=== PATIENT | male | born 1960 | race Caucasian/White ===

== ENCOUNTER 2018-06-02 18:20 | Emergency (ER) | payer OTHER ==
[2018-06-02] MEDS ORDERED: SODIUM CHLORIDE 0.9% 1,000 ML IV STA (18:26)
[2018-06-02] MEDS ORDERED: SODIUM CHLORIDE 0.9% 500 ML 500 ML IV STA (18:26)
[2018-06-02] MEDS ORDERED: MORPHINE SULFATE 2 MG/ML SYRINGE IVP STA (18:27)
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
[2018-06-02 18:48] LABS: Basophils % (A) 0 %; Eosinophils # (A) 0.3 k/uL (0-0.7); Eosinophils % (A) 4 %; HCT 46.4 % (39.0-53.0); HGB 15.3 gm/dL (13.0-17.5); Lymphocytes # (A) 1.8 k/uL (1.0-4.8); Lymphocytes % (A) 27 %; MCH 32.6 pg (25.0-35.0); MCHC 32.9 g/dL (31.0-37.0); MCV 99.2 fL (80.0-100.0); Mean Platelet Volume 6.4; Monocytes # (A) 0.3 k/uL (0-1.0); Monocytes % (A) 4 %; Neutrophils # (A) 3.9 k/uL (1.3-7.7); Neutrophils % (A) 61 %; Platelet Count 148 k/uL (150-450); RBC 4.68 m/uL (4.30-5.90); RDW 12.8 % (11.5-15.5); WBC 6.4 k/uL (3.8-10.6)
[2018-06-02 18:55] LABS: Glucose 169 mg/dL (74-99); Total Protein 7.4 g/dL (6.3-8.2)
[2018-06-02 18:56] LABS: ALT 122 U/L (21-72); AST 148 U/L (17-59); Albumin 3.9 g/dL (3.5-5.0); Alcohol <10 mg/dL; Alkaline Phosphatase 116 U/L (38-126); Amylase 33 U/L (30-110); Anion Gap 8 mmol/L; Blood Urea Nitrogen 19 mg/dL (9-20); Calcium 9.1 mg/dL (8.4-10.2); Carbon Dioxide 28 mmol/L (22-30); Chloride 103 mmol/L (98-107); Lipase 96 U/L (23-300); Potassium 3.9 mmol/L (3.5-5.1); Sodium 139 mmol/L (137-145); Total Bilirubin 1.7 mg/dL (0.2-1.3)
[2018-06-02 18:58] LABS: Creatine Kinase 317 U/L (55-170)
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
[2018-06-02 19:06] LABS: INR 1.2 (<1.2); Prothrombin Time 12.2 sec (9.0-12.0)
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
[2018-06-02 19:10] LABS: Creatine Kinase MB 4.9 ng/mL (0.0-2.4); Partial Thromboplastin Time 21.6 sec (22.0-30.0); Troponin I <0.012 ng/mL (0.000-0.034)
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
[2018-06-02 20:07] LABS: Glucose,Whole Blood 166 mg/dL (75-99)
[2018-06-02 20:20] LABS: Appearance,Urine Clear (Clear); Bilirubin,Urine Negative (Negative); Blood,Urine Negative (Negative); Color,Urine Yellow; Glucose,Urine (UA) Trace (Negative); Ketones,Urine Negative (Negative); Leukocyte Esterase,Urine Negative (Negative); Nitrite,Urine Negative (Negative); Protein,Urine Negative (Negative); Specific Gravity,Urine 1.026 (1.001-1.035); Urobilinogen,Urine <2.0 mg/dL (<2.0)
[2018-06-02 20:31] LABS: Amphetamine Screen,Urine Not Detected (NotDetected); Barbiturate Screen,Urine Not Detected (NotDetected); Benzodiazepines Screen,Urine Not Detected (NotDetected); Cocaine Screen,Urine Detected (NotDetected); Methadone Screen, Urine Not Detected (NotDetected); Opiate Screen,Urine Not Detected (NotDetected); Oxycodone Screen, Urine Not Detected (NotDetected); Phencyclidine Screen,Urine Not Detected (NotDetected); Tricyclic Antidepressant,Urine Not Detected (NotDetected); Urn Cannabinoid Scrn Detected (NotDetected)
[2018-06-02] MEDS ORDERED: HYDROcodone/APAP 5-325MG 1 EACH TAB PO STA (20:40)
== END 2018-06-02 21:00 | disposition home or self-care (01) ==
LOC: EC 18:20
DX: S42.201A Unspecified fracture of upper end of right humerus, initial encounter for closed fracture (principal); S22.42XA Multiple fractures of ribs, left side, initial encounter for closed fracture; S80.811A Abrasion, right lower leg, initial encounter; R79.89 Other specified abnormal findings of blood chemistry; F41.9 Anxiety disorder, unspecified; F32.9 Major depressive disorder, single episode, unspecified; F17.200 Nicotine dependence, unspecified, uncomplicated; Z79.899 Other long term (current) drug therapy; V23.4XXA Motorcycle driver injured in collision with car, pick-up truck or van in traffic accident, initial encounter; Y93.55 Activity, bike riding; Y92.410 Unspecified street and highway as the place of occurrence of the external cause
CPT/HCPCS: 36415; 86900; 86901; 80053; 82150; 82550; 82553; 83605; 83690; 84484; 85025; 85610; 85730; 86850; 81003; 80306; 80320; 72170; 73552; 73060; 71045; 72125; 70450; 71260; 74177; 99291; 29105; 96374; 96361 ×2; J2270; Q9967

== ENCOUNTER 2019-01-23 09:54 | Emergency (ER) | payer OTHER ==
[2019-01-23 10:03] VITALS: BP 144/79; PULSE 77; RESP 18; TEMP 98.6
[2019-01-23] MEDS ORDERED: IBUPROFEN 600 MG STARTER PACK 4 TAB BTL PO STA (10:21)
[2019-01-23] MEDS ORDERED: IBUPROFEN 600 MG TAB PO STA (10:21)
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
--- NOTE | 2019-01-23 10:57 | ED ---
General Adult HPI - General Chief complaint: Extremity Problem,Nontraumatic Stated complaint: Shoulder pain Time Seen by Provider: 01/23/19 10:17 Source: patient, RN notes reviewed, old records reviewed Mode of arrival: ambulatory Limitations: no limitations - History of Present Illness Initial comments: 58-year-old male patient with past history of left total shoulder replacement presents ED chief complaint of left shoulder pain for 2 days. Patient reports that he the left ovary lifting his job, this causes him discomfort. Patient reports the pain is located in the posterior aspect of shoulder. Patient denies any chest pain or shortness of breath. Patient denies any other symptoms. Patient reports that the pain is in pinpoint location, denies any radiation, worse with range of motion. Denies any fevers chills, skin changes. Denies all other complaints. Systemic: Pt denies fatigue, fever/chills, rash. Pt denies weakness, night sweats, weight loss. Neuro: Pt denies headache, visual disturbances, syncope or pre-syncope. HEENT: Pt denies ocular discharge or irritation, otalgia, rhinorrhea, pharyngitis or notable lymphadenopathy. Cardiopulmonary: Pt denies chest pain, SOB, heart palpitations, dyspnea on exertion. Abdominal/GI: Pt denies abdominal pain, n/v/d. : Pt denies dysuria, burning w/ urination, frequency/urgency. Denies new onset urinary or bowel incontinence. MSK: Pt denies loss of strength or function in extremities. Neuro: Pt denies new onset weakness, paresthesias. - Related Data Home Medications Medication Instructions Recorded Confirmed Albuterol Inhaler [Ventolin Hfa 1 - 2 puff INHALATION RT-Q6H PRN 06/02/18 01/23/19 Inhaler] Allergies Allergy/AdvReac Type Severity Reaction Status Date / Time No Known Allergies Allergy Verified 01/23/19 10:20 Review of Systems ROS Statement: Those systems with pertinent positive or pertinent negative responses have been documented in the HPI. ROS Other: All systems not noted in ROS Statement are negative. Past Medical History Past Medical History: Asthma History of Any Multi-Drug Resistant Organisms: None Reported Past Surgical History: Orthopedic Surgery Additional Past Surgical History / Comment(s): left foot Past Psychological History: Anxiety, Depression Smoking Status: Former smoker Past Alcohol Use History: None Reported Past Drug Use History: None Reported General Exam - General Exam Comments Initial Comments: Constitutional: NAD, AOX3, Pt has pleasant affect. HEENT: NC/AT, trachea midline, neck supple, no lymphadenopathy. Posterior pharynx non erythematous, without exudates. External ears appear normal, without discharge. Mucous membranes moist. Eyes PERRLA, EOM intact. There is no scleral icterus. No pallor noted. Cardiopulmonary: RRR, no murmurs, rubs or gallops, no JVD noted. Lungs CTAB in anterior and posterior barriga. No peripheral edema. Abdominal exam: Abdomen soft and non-distended. Abdomen non-tender to palpation in all 4 quadrants. Bowel sounds active in LLQ. No hepatosplenomegaly. No ecchymosis Neuro: CN II-XII grossly intact. No nuchal rigidity. No raccon eyes, no davis sign, no hemotympanum. No cervical spinal tenderness. MSK: Left shoulder range of motion limited secondary to pain, and he can test positive, tenderness to palpation posterior aspect of shoulder. No skin changes. Distal pulses intact and equal. Capillary refill less than 2 seconds. No posterior calf tenderness bilaterally, homans sign negative bilaterally. Posterior tibialis and radial pulse +2 bilaterally. Sensation intact in upper and lower extremities. Full active ROM in lower extremities, 5/5 stregnth. Limitations: no limitations Course Vital Signs 01/23/19 10:01 Temperature 98.6 F Pulse Rate 77 Respiratory 18 Rate Blood Pressure 144/79 O2 Sat by Pulse 98 Oximetry Medical Decision Making - Medical Decision Making 58-year-old male patient with past history of left total shoulder replacement presents ED chief complaint of left shoulder pain for 2 days. Patient reports that he the left ovary lifting his job, this causes him discomfort. Patient reports the pain is located in the posterior aspect of shoulder. Patient denies any chest pain or shortness of breath. Patient denies any other symptoms. Patient reports that the pain is in pinpoint location, denies any radiation, worse with range of motion. Denies any fevers chills, skin changes. Denies all other complaints. Pt VSS, afebrile. Physical exam displayed: Left shoulder range of motion limited secondary to pain, and he can test positive, tenderness to palpation posterior aspect of shoulder. No skin changes. Distal pulses intact and equal. Capillary refill less than 2 seconds. Plain film left shoulder displayed probably calcifications adjacent to the proximal humerus ports and a prosthesis. No acute osseous abnormality. Patient follows up with orthopedic surgeon out of [place]. Patient will contact for follow-up. Patient provided local orthopedic consult if unable to follow-up. Patient will use Tylenol Motrin as needed for pain. Return precautions discussed. Case discussed with Dr. Driscoll. Disposition Clinical Impression: Arthralgia Disposition: HOME SELF-CARE Condition: Stable Instructions (If sedation given, give patient instructions): Musculoskeletal Pain (ED) Additional Instructions: Patient to adhere to previously discussed treatment plan and will take medication(s) as directed. Patient to follow up with PCP in 1-2 days. Patient to return to ED if symptoms do not improve. Follow-up with primary care provider tomorrow and orthopedic consult tomorrow. Return to ER if condition worsens. Is patient prescribed a controlled substance at d/c from ED?: No Referrals: None,Stated [Primary Care Provider] - 1-2 days Catarino Ospina DO [Medical Doctor] - 1-2 days
--- NOTE | 2019-01-23 11:04 | ED ---
Medical Decision Making - Medical Decision Making Chart review displayed patient had previously mildly elevated liver enzymes. Patient reported that he follow-up with his primary care provider and that his hepatic function is normal. Disposition Clinical Impression: Arthralgia Disposition: HOME SELF-CARE Condition: Stable Instructions (If sedation given, give patient instructions): Musculoskeletal Pain (ED) Additional Instructions: Patient to adhere to previously discussed treatment plan and will take medication(s) as directed. Patient to follow up with PCP in 1-2 days. Patient to return to ED if symptoms do not improve. Follow-up with primary care provider tomorrow and orthopedic consult tomorrow. Return to ER if condition worsens. Is patient prescribed a controlled substance at d/c from ED?: No Referrals: Catarion Ospina, DO [Medical Doctor] - 1-2 days None,Stated [Primary Care Provider] - 1-2 days
== END 2019-01-23 11:12 | disposition home or self-care (01) ==
LOC: EC 09:54
DX: M25.512 Pain in left shoulder (principal); J45.909 Unspecified asthma, uncomplicated; Z87.891 Personal history of nicotine dependence
CPT/HCPCS: 99284

== ENCOUNTER 2020-06-06 11:42 | Emergency (ER) | payer OTHER ==
[2020-06-06] MEDS ORDERED: HYDROmorphone 0.5 MG/0.5 ML SYRINGE IM STA (11:55)
--- NOTE | 2020-06-06 12:27 | XR ---
EXAMINATION TYPE: XR elbow limited LT DATE OF EXAM: 06/06/2020 COMPARISON: 05/29/2020 HISTORY: Pain FINDINGS: Three views of the elbow demonstrate distortion of the elbow with a comminuted intra-articular fractu re of the distal humerus. Postsurgical change involving the more proximal aspect of the visualized hu merus. Suspected displaced chronic olecranon fracture of the ulna. Soft tissue ossification noted. IMPRESSION: 1. There is a comminuted displaced fracture extending to the articular surface of the distal humerus. 2. Olecranon ulnar fracture appears chronic.
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
[2020-06-06 14:31] VITALS: BP 139/83; PULSE 87; RESP 16; TEMP 98.1
== END 2020-06-06 14:30 | disposition home or self-care (01) ==
LOC: EC 11:42
DX: S42.402A Unspecified fracture of lower end of left humerus, initial encounter for closed fracture (principal); S52.022A Displaced fracture of olecranon process without intraarticular extension of left ulna, initial encounter for closed fracture; J45.909 Unspecified asthma, uncomplicated; Z87.891 Personal history of nicotine dependence; V87.8XXA Person injured in other specified noncollision transport accidents involving motor vehicle (traffic), initial encounter; Y92.410 Unspecified street and highway as the place of occurrence of the external cause
CPT/HCPCS: 73070; 99283; 29105; 96372; J1170